=== PATIENT | female | born 1990 | race Caucasian/White ===

== ENCOUNTER 2017-08-03 17:00 | Inpatient (IN) | payer OTHER ==
[~2017-08-03] VITALS: Ht 160 cm; Wt 2.7 kg
[~2017-08-03 17:00] MED LIST: AMOX1TAB5 PO; FLAGYL500MG PO; PRENATAL TABLE1 EAC1 PO
[2017-08-03] MEDS ORDERED: PRENATAL 19 TA1 EAC1 PO (17:58)
[2017-08-04] MEDS ORDERED: PRENATAL TABLE1 EAC3 PO (13:42)
[2017-08-08] MEDS ORDERED: KETO10TA2 PO (13:43)
[2017-08-08] MEDS ORDERED: SIDEROL TABLET1 EACH PO (13:44)
== END 2017-08-08 15:38 | DRG 765 ==
LOC: SURG-SUITE 17:00 → LDR 17:00 → SURG-SUITE 08-04 20:55
PROVIDERS: Obstetrics & Gynecology
PROC: 4A1HXCZ Monitoring of Products of Conception, Cardiac Rate, External Approach (ICD-10-PCS; 2017-08-03)
PROC: 3E033VJ Introduction of Other Hormone into Peripheral Vein, Percutaneous Approach (ICD-10-PCS; 2017-08-03)
PROC: 10D00Z1 Extraction of Products of Conception, Low, Open Approach (ICD-10-PCS; principal; 2017-08-04 19:00)
DX: O14.03 Mild to moderate pre-eclampsia, third trimester (principal); O60.14X0 Preterm labor third trimester with preterm delivery third trimester, not applicable or unspecified; O99.113 Other diseases of the blood and blood-forming organs and certain disorders involving the immune mechanism complicating pregnancy, third trimester; O99.013 Anemia complicating pregnancy, third trimester; D69.49 Other primary thrombocytopenia; O14.13 Severe pre-eclampsia, third trimester; Z37.0 Single live birth; Z3A.36 36 weeks gestation of pregnancy